=== PATIENT | female | born 1965 | race Two or more races ===

== ENCOUNTER 2021-01-18 20:08 | Emergency (ER) | payer SELFPAY ==
[~2021-01-18] VITALS: Ht 165.1 cm; Wt 72.6 kg
[2021-01-18 23:41] LABS: Urine Bacteria NONE SEEN /hpf (None Seen); Urine Blood Negative /uL (Negative); Urine Mucus FEW (None Seen); Urine WBC 5 /hpf (0 - 5)
[2021-01-19] MEDS ORDERED: cefTRIAXone SOD 1,000 MG VL IM ONE (01:30)
[2021-01-19] MEDS ORDERED: KETOROLAC TROMETH 60MG/2ML VIAL IM ONE (01:30)
[2021-01-19 02:41] VITALS: BP 163/85
== END 2021-01-19 02:51 | disposition home or self-care (01) ==
LOC: ER 20:11
DX: N39.0 Urinary tract infection, site not specified (principal); R30.0 Dysuria; R39.15 Urgency of urination; R11.2 Nausea with vomiting, unspecified; Z88.5 Allergy status to narcotic agent
CPT/HCPCS: 74176; 81001; 87086; 96372; 99284; J0696; J1885; J7030